=== PATIENT | male | born 1970 | race Caucasian/White ===

== ENCOUNTER 2018-11-19 22:27 | Emergency (ER) | payer BC ==
[~2018-11-19] VITALS: Ht 175.3 cm; Wt 85.5 kg
[2018-11-19 22:46] VITALS: Ht 175.3 cm; Wt 85.5 kg
[2018-11-19] MEDS ORDERED: OMEPRAZOLE40 MG PO (22:48)
[2018-11-19] MEDS ORDERED: CHLOR-TRIMETON4 MG PO (22:48)
[2018-11-19 23:45] LABS: HEMATOCRIT 40.1 % (42.0-54.0); HEMOGLOBIN 14.3 g/dL (13.5-17.5); LYMPHOCYTES 23.3 % (15-50); MCH 31.6 pg (26.0-34.0); MCHC 35.7 g/dL (31.0-37.0); MCV 88.7 fL (80.0-100.0); MEAN PLATELET VOLUME 9.1 fL (7.4-10.4); PLATELET COUNT 275 10x3/uL (130-400); RBC 4.52 10x6/uL (4.20-6.10); RDW 12.6 % (11.5-14.5); WBC 11.3 10x3/uL (4.8-10.8)
[2018-11-19 23:57] LABS: ALBUMIN 3.6 g/dL (3.4-5.0); ALKALINE PHOSPHATASE 90 U/L (46-116); ALT (SGPT) 101 U/L (10-68); BILIRUBIN - TOTAL 0.36 mg/dL (0.2-1.3); CALC OSMOLALITY 284 mosm/kg (275-300); CALCIUM 9.3 mg/dL (8.5-10.1); CARBON DIOXIDE 29.5 mmol/L (21.0-32.0); CHLORIDE - SERUM 106 mmol/L (98-107); CREATININE - SERUM 0.9 mg/dL (0.6-1.3); GLUCOSE 113 mg/dL (74-106); POTASSIUM - SERUM 4.1 mmol/L (3.5-5.1); PROTEIN - SERUM 7.2 g/dL (6.4-8.2); SODIUM 142 mmol/L (136-145); UREA NITROGEN 14 mg/dL (7-18); eGFR NON AFRICAN AMERICAN > 90 mL/min (90-120)
[2018-11-19 23:59] LABS: INR 1.07 (0.85-1.17); PROTIME 13.4 SECONDS (11.6-15.0)
[2018-11-20 00:08] LABS: AMYLASE - SERUM 43 U/L (25-115); C-REACTIVE PROTEIN 2.1 mg/dL (0.0-0.9); CKMB 0.3 U/L (0.0-3.6); CREATINE KINASE 32 UL (21-232); LIPASE 109 U/L (73-393); MAGNESIUM - SERUM 1.9 mg/dL (1.8-2.4)
[2018-11-20 00:10] LABS: TROPONIN-I < 0.017 ng/mL (0.000-0.060)
[2018-11-20 00:54] LABS: ERYTHROCYTE SEDIMENTATION RATE 8 mm/hr (0-15)
[2018-11-20] MEDS ORDERED: NAPROSYN500 MG PO (01:51)
[2018-11-20 02:19] VITALS: BP 133/82
== END 2018-11-20 02:20 | disposition home or self-care (01) ==
LOC: D.ER 22:27
PROVIDERS: Family Medicine
DX: M54.9 Dorsalgia, unspecified (principal)